=== PATIENT | female | born 1945 | race Caucasian/White ===

== ENCOUNTER → 2023-05-22 12:56 | Outpatient (REF) | payer MEDICARE, SELFPAY | LOC: DHCBS MAIN 12:56 | PROVIDERS: ATTENDING PHYSICIAN Internal Medicine Cardiovascular Disease; FAMILY PHYSICIAN Family Medicine | DX: I44.7 Left bundle-branch block, unspecified (principal) | CPT/HCPCS: 93306 ==

== ENCOUNTER → 2023-07-31 15:19 | Outpatient (REF) | payer MEDICARE, SELFPAY | LOC: HWRAD 15:19 | PROVIDERS: ATTENDING PHYSICIAN Family Medicine | DX: R05.9 Cough, unspecified (principal); R06.02 Shortness of breath | CPT/HCPCS: 71046 ==

== ENCOUNTER 2024-05-29 20:49 | Emergency (ER) | payer MEDICARE, SELFPAY ==
[2024-05-29 20:56] VITALS: BP 133/95
[2024-05-29 21:15] LABS: % Basophils 0.4 % (0-2); % Eosinophils 1.1 % (0-6); % Immature Granulocytes 0.7 % (0-0.5); % Lymphocytes 15.6 % (20.5-51.1); % Neutrophils 75.2 % (42.2-75.2); Absolute Basophils 0.1 10^3/uL (0-0.2); Absolute Eosinophils 0.1 10^3/uL (0-0.7); Absolute Immature Granulocytes 0.1 10^3/uL (0-0.05); Absolute Lymphocytes 1.9 10^3/uL (1.2-3.4); Absolute Monocytes 0.9 10^3/uL (0.1-0.6); Absolute Neutrophils 9.2 10^3/uL (1.4-6.5); Hematocrit 44.1 % (37.0-47.0); Hemoglobin 16.2 g/dL (12.0-16.0); Mean Corp Hgb Conc. 36.7 g/dL (33.0-37.0); Mean Corpuscular Hgb 34.3 pg (27.0-31.0); Mean Corpuscular Volume 93.4 fL (81.0-99.0); Mean Platelet Volume 8.3 fL (7.4-10.4); Nucleated Red Blood Cells % 0 %; Platelet Count 307 10^3/uL (130-400); Red Blood Cell Count 4.72 10^6/uL (4.20-5.40); White Blood Cell Count 12.2 10^3/uL (4.8-10.8)
[2024-05-29 21:33] LABS: ALT (SGPT) 22 U/L (0-35); AST (SGOT) 24 U/L (14-36); Albumin 4.5 g/dl (3.5-5.0); Alkaline Phosphatase 85 U/L (38-126); Blood Urea Nitrogen 21 mg/dl (7-17); Calcium 9.9 mg/dl (8.4-10.2); Carbon Dioxide 17 mmol/L (22-30); Chloride 99 mmol/L (98-107); Glucose 183 mg/dl (70-99); Potassium 4.5 mmol/L (3.5-5.1); Sodium 129 mmol/L (135-145); Total Bilirubin 1.1 mg/dl (0.2-1.3); Total Protein 7.1 g/dl (6.3-8.2); eGFR > 60.00
[2024-05-29 21:34] LABS: Lipase 235 U/L (23-300)
[2024-05-29 22:35] VITALS: BMI 28.5
[2024-05-29 22:38] VITALS: BP 143/81
[2024-05-29 23:00] VITALS: BP 151/78
[2024-05-29 23:15] LABS: Lactic Acid 1.5 mmol/L (0.7-2.0)
[2024-05-29] MEDS: NSS 1000 IV (23:27)
[2024-05-30] VITALS: BP 165/75
--- NOTE | 2024-05-30 00:28 | ED.GENMED ---
History of Present Illness
General
Chief Complaint: Abdominal Pain
Source: patient and spouse
Time Seen by Provider: 05/30/24 00:11
History of Present Illness
History of Present Illness:
This patient is a 79-year-old female presents emergency department complaints of upper abdominal pain that started shortly after lunch approximately 3 PM today. She thought it might be indigestion. However, the pain has been persistent, with
unpredictable waves of increasing pain without specific provoking or relieving factors. She she feels better than when the pain first started. She called her doctor and was referred to the emergency department. Despite triage note, patient
specifically states that she is not having nausea or vomiting and states 'I am not someone who throws up'. She is anorexic. She denies fever, chills, chest pain dyspnea, back pain, urinary symptoms. Her last bowel movement was in the waiting
room, without blood or black stool. Patient states the pain is mostly across the upper and mid abdomen.
Past History
Past History
ED Past Medical History: Hypercholesterolemia and Other (Irritable bowel syndrome, diverticulitis, hypertension)
ED Past Surgical History: Cholecystectomy and Other (Tubal ligation, and eye surgery, history of colonoscopy and endoscopy)
Social History
Tobacco: Non-smoker
Alcohol: Occasional
Drug: None
Personal:
Living: with family
Employment: Not employed
Phy Exam
Physical Exam
Physical Exam:
GENERAL: Alert , in no apparent distress
EYE: pupils equal and reactive
NECK: Supple, no significant adenopathy.
ENT: o/p clr, mmm.
CARDIAC: Regular rate and rhythm .
LUNGS: Clear breath sounds bilaterally, no acute respiratory distress, no wheezes/rales/rhonchi
ABDOMEN: Soft, nonspecific mild left upper quadrant left mid quadrant tenderness, no r/g, no cvat
NEUROLOGICAL: Alert and oriented, no focal neuro deficits
SKIN: Warm and dry, skin intact.
MUSCULOSKELETAL: No edema, well perfused.
PSYCH: Normal and appropriate interaction.
Course
Orders/Labs/Results
Orders:
Orders
05/29/24 20:53
Electrocardiogram (*1) Urgent
Reason for Study: Abdominal Pain
EKG- Treatment ONCE
05/29/24 21:07
Complete Blood Count/With Diff Urgent
Comprehensive Metabolic Panel Urgent
Lipase Urgent
05/29/24 22:57
Lactic Acid Urgent
05/29/24 23:26
0.9% Sodium Chloride 1000 ml [Nss] 1,000 ml IV BOLUS
05/30/24 00:27
CT Abd/Pel (IV only)-DH only Urgent
Comment:
Reason For Exam: hx divertic, hx cholecyst, now diffuse abd pain
05/30/24 00:30
Ketorolac [Toradol] 15 mg IV NOW STA
Abnormal Lab Results
05/29/24
21:07
WBC 12.2 H 10^3/uL
(4.8-10.8)
Hgb 16.2 H g/dL
(12.0-16.0)
MCH 34.3 H pg
(27.0-31.0)
Abs Immat Gran (auto) 0.1 H 10^3/uL
(0-0.05)
Absolute Neuts (auto) 9.2 H 10^3/uL
(1.4-6.5)
Absolute Monos (auto) 0.9 H 10^3/uL
(0.1-0.6)
Immature Gran % 0.7 H %
(0-0.5)
Lymphocytes % 15.6 L %
(20.5-51.1)
Sodium 129 L mmol/L
(135-145)
Carbon Dioxide 17 L mmol/L
(22-30)
BUN 21 H mg/dl
(7-17)
Glucose 183 H mg/dl
(70-99)
05/29/24 21:07
05/29/24 21:07
Vital Signs
Initial and Last Documented VS:
Initial Vital Signs
Temp Pulse Resp BP Pulse Ox
97.5 F 104 22 133/95 96
05/29/24 20:56 05/29/24 20:56 05/29/24 20:56 05/29/24 20:56 05/29/24 20:56
Last Documented Vital Signs
Temp Pulse Resp BP Pulse Ox
97.5 F 83 14 145/71 95
05/29/24 20:56 05/30/24 02:00 05/30/24 02:00 05/30/24 02:00 05/30/24 02:00
*Critical Care Note
Total Time (30-74mins, 75-104mins- exclusive of procedures): Not Applicable
Update Note
Update Note:
Patient presents to the Emergency Department with __abdominal pain
Number and Complexity of Problems Addressed at the Encounter
� Chronic conditions affecting care:
� Acute Exacerbation and/or Progression of Chronic Illness:
� Differential Diagnosis includes: But not limited to diverticulitis, kidney stone, bowel obstruction, retained CBD stone, etc. etc.
Amount and/or Complexity of Data to be Reviewed and Analyzed
� I performed an independent evaluation of and my interpretation is:
EKG:
CT: Verbal report from vision patient has segmental wall thickening and moderate inflammatory changes of the small bowel could be consistent with enteritis, differential also includes IBD, angioedema, ischemia far less likely.
Xrays:
Laboratory Studies: Mild leukocytosis, overall generally unremarkable
Other:
� Review of other/old records reveals:
� Clinical information was obtained by an independent historian: who is bedside
� Prescriptions/Medications Considered but not given:
� Further testing considered but not performed:
Risk of Complications and/or Morbidity or Mortality of Patient Management
� Social determinants of health affecting care:
� Discussion with other providers (PCP, Hospitalists, Consultants, etc):
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 Of note, patient is aware of the endometrial thickening and is
in the midst of workup with her RIDING TEACHER concerning. I did discuss the possibility that her symptoms could be related to angioedema from the RAYMON inhibitor that she is taking. I think other differentials such as ischemia, vasculitis, IBD, etc. are
extremely unlikely. Patient feels markedly better. Abdomen soft and nontender. She would like to go home. We will allow her to be discharged with the understanding that she needs very close follow-up, strong consideration to discontinue her RAYMON
inhibitor, and discussed with them reasons to return to the ER.
ED Attending Note
-
Portions of this chart may have been created with voice recognition software.� Occasional wrong word or��sound alike� substitutions may have occurred due to the inherent limitations of voice recognition software.
Discharge Plan
Departure
Patient Disposition: Home (Routine Discharge)
Date of Disposition: 05/30/24
Time of Disposition: 02:20
Patient with high blood pressure during this ER visit?: Yes
Condition: Good
Discharge Problem:
Abdominal pain
Instructions: Abdominal Pain, BLOOD PRESSURE
Prescriptions:
No Action
cetirizine 10 MG tablet
10 mg PO DAILY PRN (Reason: allergies)
lisinopril 10 MG tablet
20 mg PO DAILY
vitamin D3-vitamin K2 1 EACH capsule
0.5 tab PO DAILY
ibuprofen 200 MG tablet
400 mg PO Q4HPRN PRN (Reason: pain)
Clobetasol Emollient 0.05% Crm Bottle
1 tab PO DAILYPRN PRN (Reason: itchy )
hydrochlorothiazide 12.5 mg Tablet
12.5 mg PO DAILY
Lumigan 0.01 % Drops
1 drp OPHTHALMIC (EYE) QPM
Rx Instructions:
both eyes
Referrals:
Ronnie Orellana MD [Family Provider] - Tomorrow
Activity Restrictions/Additional Instructions:
PLEASE DO NOT TAKE YOUR LISINOPRIL UNTIL YOU SPEAK TO YOUR FAMILY DOCTOR, TODAY SYMPTOMS MAY BE RELATED TO THAT MEDICATION. IF YOU DEVELOP FEVER, VOMITING, RECURRENT PAIN, CHEST PAIN, SHORTNESS OF BREATH, OR OTHER WORRISOME SIGNS, PLEASE RETURN
TO THE ER IMMEDIATELY!
Interventions
Interventions:
*Risk Screen - Suicide Last Done: 05/29/24 20:59
*General Assessment Last Done: 05/29/24 22:37
*Neglect/Abuse Screening Last Done: 05/29/24 20:59
*ED- Fall Risk Assessment Last Done: 05/29/24 22:37
*ED COVID-19 Vaccine History Last Done: 05/29/24 21:00
WI-Muce[facility]-Kvpkukaoqh Assessment Last Done: 05/29/24 22:40
Discharge Date and Time
Print Language: ARMENIAN
[2024-05-30] MEDS: TORADOL 15 MG IV (00:36)
[2024-05-30 01:14] VITALS: BP 146/76
[2024-05-30 02:00] VITALS: BP 145/71
== END 2024-05-30 02:34 | disposition home or self-care (01) ==
LOC: EMR 20:49
PROVIDERS: Student in an Organized Health Care Education/Training Program; EMERGENCY PHYSICIAN Emergency Medicine; FAMILY PHYSICIAN Family Medicine
DX: R10.10 Upper abdominal pain, unspecified (principal); R63.0 Anorexia; I10 Essential (primary) hypertension
CPT/HCPCS: 99285; 96374; 96361; 74177; 80053; 83605; 83690; 85025; 93005; Q9967

== ENCOUNTER → 2024-06-27 12:30 | Outpatient (REF) | payer MEDICARE, SELFPAY | LOC: CLAB 12:30 | PROVIDERS: ATTENDING PHYSICIAN Obstetrics & Gynecology Gynecology | DX: N84.0 Polyp of corpus uteri (principal) | CPT/HCPCS: 88305 ==

== ENCOUNTER → 2024-11-24 10:57 | Outpatient (REF) | payer MEDICARE, SELFPAY | LOC: WDC 10:57 | PROVIDERS: ATTENDING PHYSICIAN Obstetrics & Gynecology Gynecology; FAMILY PHYSICIAN Family Medicine | DX: N95.0 Postmenopausal bleeding (principal); Z12.39 Encounter for other screening for malignant neoplasm of breast; Z78.0 Asymptomatic menopausal state; Z12.31 Encounter for screening mammogram for malignant neoplasm of breast | CPT/HCPCS: 76830; 76856; 77063; 77067; 77080 ==

== ENCOUNTER → 2024-12-01 07:07 | Outpatient (REF) | payer MEDICARE, SELFPAY | LOC: RAD 07:07 | PROVIDERS: ATTENDING PHYSICIAN Specialist; FAMILY PHYSICIAN Family Medicine | DX: I10 Essential (primary) hypertension (principal) | CPT/HCPCS: 93975 ==